=== PATIENT | female | born 1995 ===

== ENCOUNTER 2021-10-20 13:58 | Outpatient (CLI) | payer OTHER | END 2021-10-20 15:21 | disposition home or self-care (01) | LOC: PRENATAL 13:58 | DX: O35.0XX0 Maternal care for (suspected) central nervous system malformation in fetus, not applicable or unspecified (principal); O35.3XX0 Maternal care for (suspected) damage to fetus from viral disease in mother, not applicable or unspecified; O60.00 Preterm labor without delivery, unspecified trimester; O34.219 Maternal care for unspecified type scar from previous cesarean delivery; Z3A.30 30 weeks gestation of pregnancy ==